=== PATIENT | female | born 1995 | race African-American/Black ===

== ENCOUNTER 2016-05-12 12:29 | Emergency (ER) | payer BC ==
--- NOTE | 2016-05-12 12:41 | ER Document Report ---
ED Medical Screen (RME) - General Stated Complaint: BLOOD SUGAR PROBLEMS Notes: 20 yo female c/o high blood sugar. + Type 2 IDDM. BG 331. blurred vision, + nausea. pt also taking fertility medications presently. TRAVEL OUTSIDE OF THE [place] IN LAST 30 DAYS: No - Related Data Allergies/Adverse Reactions: No Known Allergies Allergy (Verified 09/19/13 19:31) Past Medical History Pulmonary Medical History: Reports: Hx Asthma - Immunizations Immunizations up to date: Yes Hx Diphtheria, Pertussis, Tetanus Vaccination: Yes
[2016-05-12 13:09] LABS: ABSOLUTE BASOPHILS # (AUTO) 0.1 10^3/uL (0.0-0.2); ABSOLUTE LYMPHOCYTES (AUTO) 2.3 10^3/uL (0.5-4.7); ABSOLUTE MONOCYTES (AUTO) 0.5 10^3/uL (0.1-1.4); ABSOLUTE NEUT (AUTO) 8.3 10^3/uL (1.7-8.2); EOSINOPHILS % (AUTO) 0.4 % (0-6); HEMATOCRIT 35.3 % (36.0-47.0); HEMOGLOBIN 11.8 g/dL (12.0-15.5); HGB HCT DIFFERENCE 0.1; LYMPHOCYTES % (AUTO) 20.1 % (13-45); MEAN CORPUSCULAR HGB CONC 33.4 g/dL (32.0-36.0); MEAN CORPUSCULAR VOLUME 81 fl (80-97); MONOCYTES % (AUTO) 4.7 % (3-13); RED BLOOD COUNT 4.37 10^6/uL (3.72-5.28); RED CELL DISTRIBUTION WIDTH 15.8 % (11.5-14.0); SEGMENTED NEUTROPHILS % (AUTO) 73.8 % (42-78); WHITE BLOOD COUNT 11.3 10^3/uL (4.0-10.5)
[2016-05-12 13:16] LABS: APPEARANCE,URINE CLEAR; BILIRUBIN,URINE NEGATIVE (NEGATIVE); GLUCOSE, URINE >=500 mg/dL (NEGATIVE); KETONES,URINE NEGATIVE (NEGATIVE); LEUKOCYTE ESTERASE,URINE NEGATIVE (NEGATIVE); NITRITE,URINE NEGATIVE (NEGATIVE); PROTEIN,URINE 30 mg/dL (NEGATIVE); URINE SPECIFIC GRAVITY 1.037; UROBILINOGEN,URINE NEGATIVE mg/dL (<2.0)
--- NOTE | 2016-05-12 13:19 | ER Document Report ---
ED General - General Chief Complaint: High Blood Sugar Stated Complaint: BLOOD SUGAR PROBLEMS Time seen by provider: 13:17 Mode of Arrival: Ambulatory Information source: Patient Notes: 20-year-old female states she felt dizzy and shaky with blurry vision this morning and was concerned her blood sugar might be high. She is on metformin is also taking fertility drugs says that she was told not to take extra insulin for high blood sugar is her might be some adverse reactions that she came to the emergency department have a blood sugar rechecked. She denies fever, chills , nausea, vomiting, cough, shortness of breath, earache, sore throat, chest pain , abdominal pain, or back pain. Physical Exam: General: Alert, appears well. HEENT: Normocephalic. Atraumatic. PERRLA. Extraocular movements intact. Oropharynx clear. Neck: Supple. Non-tender. Respiratory: No respiratory distress. Clear and equal breath sounds bilaterally. Cardiovascular: Regular rate and rhythm. Abdominal: Normal Inspection. Soft, non-tender. No distension. Normal Bowel Sounds. Back: Non-tender. No deformity or step off. Extremities: Moves all extremities well no gross deformities Neurological: Answers questions verbally speech clear mentation clear and malaise without difficulty Psychological: Normal affect. Normal Mood. Skin: Warm. Dry. Normal color. TRAVEL OUTSIDE OF THE [place] IN LAST 30 DAYS: No - Related Data Allergies/Adverse Reactions: No Known Allergies Allergy (Verified 05/12/16 12:41) Past Medical History - Social History Smoking Status: Never Smoker Chew tobacco use (# tins/day): No Frequency of alcohol use: None Drug Abuse: None Family History: Arthritis, DM, Hypertension, Malignancy, Thyroid Disfunction Patient has suicidal ideation: No Patient has homicidal ideation: No Pulmonary Medical History: Reports: Hx Asthma Endocrine Medical History: Reports: Hx Diabetes Mellitus Type 2 Surgical Hx: Negative - Immunizations Immunizations up to date: Yes Hx Diphtheria, Pertussis, Tetanus Vaccination: Yes Review of Systems - Review of Systems Constitutional: denies: Chills, Fever EENT: denies: Ear pain, Throat pain Cardiovascular: denies: Chest pain Respiratory: denies: Short of breath Gastrointestinal: denies: Abdominal pain Genitourinary: denies: Burning, Dysuria Musculoskeletal: denies: Back pain Skin: denies: Rash Hematologic/Lymphatic: denies: Swollen glands Neurological/Psychological: denies: Weakness, Numbness Physical Exam - Vital signs Vitals: Temp Pulse Resp BP Pulse Ox 98.2 F 86 15 132/78 H 100 05/12/16 12:39 05/12/16 12:39 05/12/16 12:39 05/12/16 12:39 05/12/16 12:39 Course - Re-evaluation Re-evalutation: 05/12/16 14:13 Patient feeling well now with no complaints. I reassured her that of the lab work looks good and she has no indication for admission and no findings suggesting uncontrolled diabetes or DKA. She says she is in process of establishing care with a new primary care provider will provide her with a number for Dr. Fatima who is on for unassigned. I asked her not to make any changes in her diabetic regimen and follow with her primary care physician - Vital Signs Vital signs: Temp Pulse Resp BP Pulse Ox 98.2 F 86 15 132/78 H 100 05/12/16 12:39 05/12/16 12:39 05/12/16 12:39 05/12/16 12:39 05/12/16 12:39 - Laboratory Result Diagrams: 05/12/16 12:56 05/12/16 12:56 Laboratory results interpreted by me: 05/12/16 05/12/16 05/12/16 12:56 12:56 12:56 WBC 11.3 H Hgb 11.8 L Hct 35.3 L RDW 15.8 H Absolute Neutrophils 8.3 H Glucose 244 H POC Glucose ALT 71 H Urine Protein 30 H Urine Glucose (UA) >=500 H Urine Ascorbic Acid 40 H 05/12/16 13:07 WBC Hgb Hct RDW Absolute Neutrophils Glucose POC Glucose 229 H ALT Urine Protein Urine Glucose (UA) Urine Ascorbic Acid Discharge - Discharge Clinical Impression: Hyperglycemia Condition: Stable Disposition: HOME, SELF-CARE Additional Instructions: Hyperglycemia (High Blood Sugar) You have an abnormally high blood sugar. Not all high blood sugar requires long-term treatment. High blood sugar can be due to medications, , or the stress of illness. (These cases are "borderline diabetes.") If the doctor feels your high blood sugar might resolve with time, you may not require treatment now. You will be scheduled for further evaluation. It's very important that you follow through, to see if the blood sugar returns to normal levels. Uncontrolled high blood sugar leads to early heart disease, strokes, nerve damage, eye damage, and kidney damage. Call the physician if there is faintness, excess sleepiness, or very rapid breathing. Referrals: JILLIAN FATIMA MD [ACTIVE STAFF] - Follow up as needed
[2016-05-12 13:27] LABS: ALANINE AMINOTRANSFERASE 71 U/L (9-52); ALKALINE PHOSPHATASE 54 U/L (38-126); ANION GAP 15 (5-19); ASPARTATE AMINO TRANSFERASE 20 U/L (14-36); BILIRUBIN,TOTAL 0.4 mg/dL (0.2-1.3); BLOOD UREA NITROGEN 13 mg/dL (7-20); CALCIUM 9.9 mg/dL (8.4-10.2); CARBON DIOXIDE 24 mmol/L (22-30); CHLORIDE 104 mmol/L (98-107); CREATININE RESULT 0.67 mg/dL (0.52-1.25); GLUCOSE 244 mg/dL (75-110); POTASSIUM 4.6 mmol/L (3.6-5.0); SODIUM 142.6 mmol/L (137-145); TOTAL PROTEIN 8.1 g/dL (6.3-8.2)
[2016-05-12 14:22] VITALS: BP 117/66
== END 2016-05-12 14:20 | disposition home or self-care (01) ==
LOC: ER 12:29
DX: E11.65 Type 2 diabetes mellitus with hyperglycemia (principal); R42 Dizziness and giddiness; H53.8 Other visual disturbances; J45.909 Unspecified asthma, uncomplicated; Z79.84 Long term (current) use of oral hypoglycemic drugs; Z79.899 Other long term (current) drug therapy
CPT/HCPCS: 36415; 80053; 81001; 81025; 82962; 85025; 99284

== ENCOUNTER 2017-08-05 20:46 | Emergency (ER) | payer BC, OTHER ==
--- NOTE | 2017-08-05 21:49 | ER Document Report ---
ED Medical Screen (RME) - General Chief Complaint: Vaginal Pain Stated Complaint: VAGINAL PAIN Time Seen by Provider: 08/05/17 21:43 Notes: 21-year-old female, chief complaint of a painful area along the right labia and painful lumps extending in the groin just above this. She denies fever, discharge, abdominal pain, pelvic pain, or vaginal bleeding. She denies any drainage from the area. She does report some dysuria. Past medical history of PCOS, she denies any other medical history. TRAVEL OUTSIDE OF THE [place] IN LAST 30 DAYS: No - Related Data Allergies/Adverse Reactions: No Known Allergies Allergy (Verified 08/05/17 20:46) Past Medical History - Social History Chew tobacco use (# tins/day): No Frequency of alcohol use: None Drug Abuse: None Pulmonary Medical History: Reports: Hx Asthma Endocrine Medical History: Reports: Hx Diabetes Mellitus Type 2 Renal/ Medical History: Denies: Hx Peritoneal Dialysis - Immunizations Immunizations up to date: Yes Hx Diphtheria, Pertussis, Tetanus Vaccination: Yes Physical Exam - Vital signs Vitals: Temp Pulse Resp BP Pulse Ox 98.7 F 93 18 157/86 H 99 08/05/17 21:30 08/05/17 21:30 08/05/17 21:30 08/05/17 21:30 08/05/17 21:30 - Abdominal Inspection: Normal Distension: No distension Tenderness: Nontender. No: Tender, Guarding Course - Vital Signs Vital signs: Temp Pulse Resp BP Pulse Ox 98.7 F 93 18 157/86 H 99 08/05/17 21:30 08/05/17 21:30 08/05/17 21:30 08/05/17 21:30 08/05/17 21:30
[2017-08-05 22:35] LABS: APPEARANCE,URINE SLIGHTLY-CLOUDY; BILIRUBIN,URINE NEGATIVE (NEGATIVE); COLOR,URINE YELLOW; GLUCOSE, URINE NEGATIVE (NEGATIVE); KETONES,URINE TRACE mg/dL (NEGATIVE); LEUKOCYTE ESTERASE,URINE LARGE (NEGATIVE); NITRITE,URINE NEGATIVE (NEGATIVE); PROTEIN,URINE 30 mg/dL (NEGATIVE); URINE SPECIFIC GRAVITY 1.027
--- NOTE | 2017-08-05 23:24 | ER Document Report ---
ED General - General Chief Complaint: Vaginal Pain Stated Complaint: VAGINAL PAIN Time Seen by Provider: 08/05/17 21:43 Information source: Patient Notes: 21-year-old female, chief complaint of a painful area along the right labia and painful lumps extending in the groin just above this. She denies fever, discharge, abdominal pain, pelvic pain, or vaginal bleeding. She denies any drainage from the area. She does report some dysuria. Past medical history of PCOS, she denies any other medical history. Patient was seen earlier at urgent care for a "pulled right groin muscle. She denies any injury to the area. She denies any prior similar symptoms. She Is currently on Femera for fertility. Has had recent negative STD testing. She is sexually active with her only. TRAVEL OUTSIDE OF THE [place] IN LAST 30 DAYS: No - HPI Onset: This afternoon Onset/Duration: Gradual Quality of pain: Burning Severity: Mild Associated symptoms: denies: Chills, Fever, Headache, Nausea, Vomiting, Shortness of breath Exacerbated by: Walking Relieved by: Denies Similar symptoms previously: No Recently seen / treated by doctor: Yes - Related Data Allergies/Adverse Reactions: No Known Allergies Allergy (Verified 08/05/17 20:46) Past Medical History - General Information source: Patient - Social History Smoking Status: Never Smoker Chew tobacco use (# tins/day): No Frequency of alcohol use: None Drug Abuse: None Family History: Arthritis, DM, Hypertension, Malignancy, Thyroid Disfunction Patient has suicidal ideation: No Patient has homicidal ideation: No Pulmonary Medical History: Reports: Hx Asthma Endocrine Medical History: Reports: Hx Diabetes Mellitus Type 2 Renal/ Medical History: Denies: Hx Peritoneal Dialysis - Immunizations Immunizations up to date: Yes Hx Diphtheria, Pertussis, Tetanus Vaccination: Yes Review of Systems - Review of Systems Constitutional: denies: Fever, Weakness EENT: denies: Throat pain Cardiovascular: denies: Chest pain, Palpitations Respiratory: denies: Short of breath Gastrointestinal: denies: Abdominal pain Genitourinary: Other - Labial pain. denies: Burning, Dysuria, Discharge, Flank pain Female Genitourinary: denies: Vaginal bleeding, Vaginal odor Musculoskeletal: denies: Back pain Skin: No symptoms reported Hematologic/Lymphatic: No symptoms reported Neurological/Psychological: No symptoms reported Physical Exam - Vital signs Vitals: Temp Pulse Resp BP Pulse Ox 98.7 F 93 18 157/86 H 99 08/05/17 21:30 08/05/17 21:30 08/05/17 21:30 08/05/17 21:30 08/05/17 21:30 Interpretation: Normal, Hypertensive. No: Tachypneic - General General appearance: Appears well, Alert - HEENT Head: Normocephalic, Atraumatic Eyes: Normal Pupils: PERRL - Respiratory Respiratory status: No respiratory distress Chest status: Nontender Breath sounds: Normal Chest palpation: Normal - Cardiovascular Rhythm: Regular Heart sounds: Normal auscultation Murmur: No - Abdominal Inspection: Normal Distension: No distension Bowel sounds: Normal Tenderness: Nontender Organomegaly: No organomegaly - Genitourinary External exam: Other - Right labia is tender. There is mild induration without fluctuance or associated erythema. No inguinal adenopathy.. No: Lesions, Laceration, Vesicles Speculum exam: Normal - Back Back: Normal, Nontender. No: CVA tenderness - Extremities General upper extremity: Normal inspection, Nontender, Normal color, Normal ROM , Normal temperature. No: Edema General lower extremity: Normal inspection, Nontender, Normal color, Normal ROM , Normal temperature, Normal weight bearing. No: Edema, Shelley's sign Course - Re-evaluation Re-evalutation: Laboratory 08/05/17 21:50 Urine Color YELLOW Urine Appearance SLIGHTLY-CLOUDY Urine pH 6.0 Ur Specific [place] 1.027 Urine Protein 30 H Urine Glucose (UA) NEGATIVE Urine Ketones TRACE H Urine Blood NEGATIVE Urine Nitrite NEGATIVE Urine Bilirubin NEGATIVE Urine Urobilinogen 2.0 H Ur Leukocyte Esterase LARGE H Urine WBC (Auto) 19 Urine RBC (Auto) 1 U Hyaline Cast (Auto) 1 Squamous Epi Cells Auto 9 Urine Mucus (Auto) MOD Urine Ascorbic Acid NEGATIVE Urine HCG, Qual NEGATIVE 08/06/17 00:29 Bed-side ultrasound of the right labia was performed and there is no fluid pocket or cobblestoning indicative of abscess or cellulitis. Discussed with the patient at length that this could be an early labial abscess. At this time I think I&D would be futile. Patient has an upcoming appointment with her OB/ [facility]. She was advised to perform sitz bath, keep the area clean and dry return with worsening pain. Patient found to have a urinary tract infection she was prescribed Bactrim for this. Urine negative. 08/06/17 06:14 - Vital Signs Vital signs: Temp Pulse Resp BP Pulse Ox 98.7 F 76 18 151/90 H 99 08/05/17 21:30 08/06/17 00:51 08/06/17 00:51 08/06/17 00:51 08/06/17 00:51 - Laboratory Laboratory results interpreted by me: 08/05/17 21:50 Urine Protein 30 H Urine Ketones TRACE H Urine Urobilinogen 2.0 H Ur Leukocyte Esterase LARGE H Discharge - Discharge Clinical Impression: Labial pain UTI (urinary tract infection) Qualifiers: Urinary tract infection type: acute cystitis Hematuria presence: without hematuria Qualified Code(s): N30.00 - Acute cystitis without hematuria Condition: Good Disposition: HOME, SELF-CARE Instructions: Abscess ([facility]), Urinary Tract Infection ([facility]) Additional Instructions: Your exam is significant for pain along the right labia. There is firmness without fluctuance. Your ultrasound did not show an obvious fluid pocket that would indicate abscess although this could be an early labial abscess. Please return to the emergency department with worsening pain, swelling, discharge. Please keep your upcoming appointment with your [employer] on Tuesday, August 08, 2017. Prescriptions: Hydrocodone/Acetaminophen [[place] 5-325 mg Tablet] 1 tab PO Q6H #8 tablet Sulfamethoxazole/Trimethoprim [Bactrim Ds Tablet] 1 each PO BID #14 tablet
[2017-08-06] MEDS ORDERED: SULFAMETHOXAZOLE/TRIMETHOPRIM 800-160 MG TABLET PO ONE (00:38)
[2017-08-06 00:53] VITALS: BP 151/90
== END 2017-08-06 00:51 | disposition home or self-care (01) ==
LOC: ER 20:46
DX: N30.00 Acute cystitis without hematuria (principal); R10.2 Pelvic and perineal pain; R30.0 Dysuria; J45.909 Unspecified asthma, uncomplicated; E11.9 Type 2 diabetes mellitus without complications
CPT/HCPCS: 81001; 81025; 99283